=== PATIENT | male | born 2005 | race Caucasian/White ===

== ENCOUNTER 2023-03-11 07:35 | Day surgery (SDC) | payer BC, MEDICAID, SELFPAY ==
[2023-03-06 14:59] VITALS: BMI 28.2
--- NOTE | 2023-03-10 10:20 | P.CONAN_ITS ---
Documented by User: Eugenia Trujillo NP 03/10/23 10:21 HPI - Anesthesia Eval Consult details Narrative: 17yo M for Right Superior Oblique Eye Muscle Medically optimized [facility] Past Medical History Medical History Fourth nerve palsy of right eye Social History Social History Patient Tobacco Use Status: Never used Tobacco Are you DNR?: No Advance Directives: No Advance Directives Information Provided: Yes Meds Allergies Allergy/AdvReac Type Severity Reaction Status Date / Time environmental allergies Allergy Unknown Verified 03/10/23 08:57 Exam Height,Weight and Vital Signs: Height 5 ft 7 in Weight 81.647 kg Assessment and Plan Assessment Anesthesia Assessment: Chart Reviewed Documented by User: Court Wetzel MD 03/11/23 09:12 HPI - Anesthesia Eval Consult details Narrative: 17yo M for Right Superior Oblique Eye Muscle, occasional etoh and pot use, last for new year gabriela Medically optimized [facility] Past Medical History Medical History Fourth nerve palsy of right eye Family History Family history of problems with anesthesia: No Surgical History History of Problems with Anesthesia: No Social History Social History Patient Tobacco Use Status: Never used Tobacco Are you DNR?: No Advance Directives: No Advance Directives Information Provided: Yes Meds Allergies Allergy/AdvReac Type Severity Reaction Status Date / Time environmental allergies Allergy Unknown Verified 03/10/23 08:57 Exam Airway Mallampati Class: I TM Dist: >3cm Neck ROM: Full Heart: rrr Lungs: cta Assessment and Plan Assessment Anesthesia Assessment: Anesthesia Plan Discussed Final Anesthetic Review Family History of Problems with Anesthesia: No History of Problems with Anesthesia: No NPO: Yes ASA Class: II Final Preanesthetic Review: No Changes in Pt Med Stat, Meds/Allgs Chart Reviewed, Consent Obtained/Reviewed and Anes Risks/Benef Reviewed Patient Risk: Low Procedure Risk: Low Anesthetic Plan Anesthetic Plan: GA Disposition: Standard PACU
[2023-03-11 08:35] VITALS: BP 133/80; PULSE 55; RESP 14; TEMP 36.7; O2SAT 100; BMI 26.7
[2023-03-11 10:23] VITALS: BP 99/40; PULSE 56; RESP 16; TEMP 36.6; O2SAT 97
[2023-03-11 10:28] VITALS: BP 94/44; PULSE 66; RESP 16; O2SAT 97
[2023-03-11 10:33] VITALS: BP 113/45; PULSE 70; RESP 16; O2SAT 100
[2023-03-11 10:38] VITALS: BP 115/52; PULSE 75; RESP 16; O2SAT 99
[2023-03-11 10:53] VITALS: BP 117/70; PULSE 69; RESP 16; O2SAT 99
--- NOTE | 2023-03-11 11:25 | HO.OPHTHAL ---
Ophthalmology Operative Note Date of Service: 03/11/23 Narrative: Diagnosis right superior oblique palsy. Procedure right superior oblique tendon tuck of [address] Medley. Anesthesia general. Complications none. The patient was brought to the operative room placed under general anesthesia. The eyes were prepped and draped in the usual sterile ophthalmic fashion. Forced ductions revealed a loose right superior oblique tendon. An incision was made at bare sclera in the superior temporal fornix and the superior rectus muscle was hooked. A A desmarr speculum was used to expose the superior oblique tendon which was carefully grasped with a small tenotomy hook. It was transferred to the tendon Truong and a temporary 10 mm tuck was carried out with a Mersilene suture. The forced ductions were repeated and revealed resistance to elevation in adduction as the inferior limbus cross the intercanthal line. The tie was converted to a permanent tie with the Mersilene suture and conjunctiva was closed with interrupted Vicryl sutures. The patient was then awoken from general anesthesia and discharged to postoperative recovery in good condition.
== END 2023-03-11 11:05 | disposition home or self-care (01) ==
LOC: HO.SSS 07:37
PROVIDERS: Visit Provider Ophthalmology
PROC: (CPT 67318; principal; 2023-03-11 09:30)
DX: H49.11 Fourth [trochlear] nerve palsy, right eye (principal); H05.821 Myopathy of extraocular muscles, right orbit
CPT/HCPCS: 67318; J0131; J1100; J1596; J1885; J2405; J2704; J3010

== ENCOUNTER 2023-09-16 09:12 | Day surgery (SDC) | payer BC, MEDICAID, SELFPAY ==
[2023-09-14 09:20] VITALS: BMI 26.9
--- NOTE | 2023-09-15 10:11 | P.CONAN_ITS ---
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 Family History Family history of problems with anesthesia: No Surgical History Surgical History Hx of eye surgery History of Problems with Anesthesia: No Social History Social History Patient Tobacco Use Status: Never used Tobacco Use of substances other than those prescribed or required for medical reasons: Yes Substance Use Frequency: Occasionally Are you DNR?: No Advance Directives: No Advance Directives Information Provided: Yes Meds Allergies Allergy/AdvReac Type Severity Reaction Status Date / Time environmental allergies Allergy Unknown Verified 09/16/23 10:09 Home Medications ?Medication ?Instructions ?Recorded ?Confirmed ?Last Taken ?Type No Known Home Meds 09/16/23 09/16/23 Unknown History Exam Height,Weight and Vital Signs: Height 5 ft 8 in Weight 80.286 kg Assessment and Plan Assessment Anesthesia Assessment: Chart Reviewed Final Anesthetic Review Family History of Problems with Anesthesia: No History of Problems with Anesthesia: No Documented by User: Court Wetzel MD 09/16/23 10:32 PMFSH Past Medical History Medical History Inferior rectus muscle entrapment, 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 Surgical History Surgical History Hx of eye surgery Social History Social History Patient Tobacco Use Status: Never used Tobacco Use of substances other than those prescribed or required for medical reasons: Yes Substance Use Frequency: Occasionally Are you DNR?: No Advance Directives: No Advance Directives Information Provided: Yes Meds Allergies Allergy/AdvReac Type Severity Reaction Status Date / Time environmental allergies Allergy Unknown Verified 09/16/23 10:09 Home Medications ?Medication ?Instructions ?Recorded ?Confirmed ?Last Taken ?Type No Known Home Meds 09/16/23 09/16/23 Unknown History Exam Airway Mallampati Class: II TM Dist: >3cm Neck ROM: Full Heart: rrr Lungs: cta Assessment and Plan Assessment Anesthesia Assessment: Anesthesia Plan Discussed and Smoking Cess. Discussed (jack last month last use) Final Anesthetic Review NPO: Yes ASA Class: II Final Preanesthetic Review: No Changes in Pt Med Stat, Meds/Allgs Chart Revie wed, Consent Obtained/Reviewed and Anes Risks/Benef Reviewed Patient Risk: Low Procedure Risk: Low Anesthetic Plan Anesthetic Plan: GA Disposition: Standard PACU
[2023-09-16] VITALS (8 sets, daily range): BP systolic 95–122; BP diastolic 38–56; PULSE 53–79; RESP 15–16; TEMP 36.5–36.8; O2SAT 97–100
[2023-09-16] MEDS: Lactated Ringers 1,000 ML 100 ML IVCONT (10:09)
--- NOTE | 2023-09-16 12:31 | PC.NURSE ---
24hr update documented on paper
--- NOTE | 2023-09-16 16:15 | P.OPHTHAL_ITS ---
Ophthalmology Operative Note Date of Service: 09/16/23 Narrative: Diagnosis right superior oblique palsy. Procedure left inferior rectus recession of [address] Medley. Anesthesia general. Complications none. The patient was brought the operative room placed under general anes thesia. The eyes were prepped and draped in the usual sterile ophthalmic fashion. A lid speculum was placed in the left eye and incisions made at bare sclera in the inferotemporal fornix. The inferior rectus muscle was hooked and secured with a double-armed Vicryl suture. It was disinserted from the globe and reattached to a position 5 mm behind the original insertion. Conjunctiva was closed with interrupted Vicryl sutures. The patient was then awoken from general anesthesia and discharged to postoperative recovery in good condition.
== END 2023-09-16 14:14 | disposition home or self-care (01) ==
PROVIDERS: Visit Provider Ophthalmology
PROC: (CPT 67314; principal; 2023-09-16 11:10)
DX: H50.632 Inferior rectus muscle entrapment, left eye (principal); Z98.890 Other specified postprocedural states
CPT/HCPCS: 67314; J0131; J1100; J1596; J1885; J2405; J2704; J3010